=== PATIENT | male | born 1975 | race Caucasian/White ===

== ENCOUNTER 2017-06-19 17:01 | Emergency (ER) | payer BC ==
[~2017-06-19] VITALS: Ht 167.6 cm; Wt 55.8 kg
[~2017-06-19 17:01] MED LIST: ALPRAZOLAM1 M2 PO; ATIVAN0.5 MG PO; ATIVAN1 MG PO; CATAFLAM50 MG PO; VALIUM5 MG PO; VISTARIL25 MG PO; XANAX0.25 MG PO
[2017-06-19] MEDS ORDERED: BENADRYL25 M2 PO (17:24)
[2017-06-19] MEDS ORDERED: PREDNISONE10 MG PO (17:26)
== END 2017-06-19 18:26 | disposition home or self-care (01) ==
LOC: ED 17:01
DX: L23.7 Allergic contact dermatitis due to plants, except food (principal)

== ENCOUNTER 2019-06-05 10:44 | Emergency (ER) | payer BC ==
[~2019-06-05] VITALS: Ht 167.6 cm; Wt 99.8 kg
[~2019-06-05 10:44] MED LIST changes: +BENADRYL25 M2 PO; +PREDNISONE10 MG PO
[2019-06-05] MEDS ORDERED: IBUPROFEN600 MG PO (11:32)
[2019-06-05] MEDS ORDERED: SILVADENE,SSD C50 GM T (11:32)
== END 2019-06-05 12:02 | disposition home or self-care (01) ==
LOC: ED 10:44
DX: T23.222A Burn of second degree of single left finger (nail) except thumb, initial encounter (principal); T31.0 Burns involving less than 10% of body surface; Z79.899 Other long term (current) drug therapy; X17.XXXA Contact with hot engines, machinery and tools, initial encounter; Y93.89 Activity, other specified; Y92.89 Other specified places as the place of occurrence of the external cause; Y99.8 Other external cause status

== ENCOUNTER → 2019-09-14 | Outpatient (CLI) | payer BC ==
[~2019-09-14] MED LIST changes: +COREG6.25 MG PO; +IBUPROFEN600 MG PO; +KLONOPIN0.5 MG PO; +LIPITOR10 MG PO; +PAXIL20 M1 PO; +SILVADENE,SSD C50 GM T
--- NOTE | ~2019-09-14 | ST ---
[place], [place] EXERCISE STRESS TEST REPORT NAME: KELLY MURRAY [facility] #: [id number] UNIT #: [id number] ROOM: DOCTOR: DANIE BERG MD BIRTHDATE: [birth year] DOS: 09/14/2019 EXERCISE STRESS ECHOCARDIOGRAPHY The patient walked on J Luis modified protocol, 2-minute protocol achieving 157 peak heart rate, and walked for about 6 minutes 30 seconds, achieved about 10 METs, 90% of predicted heart rate. Peak blood pressure is 152/84. Baseline EKG, sinus with nonspecific ST-T changes. With exercise, no EKG changes suggestion of myocardial ischemia. Baseline echo obtained showed an ejection fraction about 55-60%. No wall motion abnormalities. With exercise, the patient had no chest discomfort, no dysrhythmia. Blood pressure and heart rate response was normal. Echo improved from 55% almost obliteration of the cavity. No hypokinesis dyskinesis, etc. There is thickening of all the segments of the left ventricle. FINAL IMPRESSION: Normal exercise stress echocardiography without any evidence of ischemia. DANIE BERG MD CM:STRESS:EXERCISE STRESS TEST REPORT [id number] DANIE BERG MD
--- NOTE | 2019-09-14 07:25 | NUR ---
INFORMED CONSENT SIGNED FOR EXERCISE STRESS ORDER WITH DR. BERG. RESTING EKG MSR WITH RARE PVC, HR 62, BP 90/66. COMPLETED 6:30 OF A 2 MINUTE GWYN PROTOCOL COMPLETING :30 STAGE IV, 4.2MPH/16% GRADE. PEAK HEART RATE OF 157 ACHIEVED WHICH IS 89% PREDICTED MAXIMUM AND A PEAK BP OF 152/84. RARE PVC NOTED WITH NO ST CHANGES. HAS AN AVERAGE EXERCISE TOLERANCE. SEE ECHO REPORT FOR FULL DETAILS OF ECHO. LAST RECOVERY HR 73, BP 120/50. THIS IS A NEGATIVE EXERCISE STRESS ECHO. LEFT CARDIOLOGY IN STABLE CONDITION.
== END | disposition home or self-care (01) ==
LOC: CARD 01:08
DX: I49.8 Other specified cardiac arrhythmias (principal)

== ENCOUNTER 2020-04-07 09:59 | Emergency (ER) | payer BC ==
[2020-04-07 10:27] LABS: BASO % 0.4 % (0.0-1.0); EOS # 0.1 10*3/uL (0.0-0.4); EOS % 1.9 % (1.0-4.0); LYMPH # 1.4 10*3/uL (1.3-4.4); LYMPH % 25.4 % (27.0-41.0); MEAN CELL VOLUME 93.1 fl (80.0-94.0); MEAN CORPUSCULAR HGB 31.4 pg (27.0-31.0); MEAN CORPUSCULAR HGB CONC 33.7 g/dl (33.0-37.0); MEAN PLATELET VOLUME 10.7 fl (9.6-12.3); MONO # 0.5 10*3/uL (0.1-1.0); MONO % 8.8 % (3.0-9.0); NEUT # 3.6 10*3/uL (2.3-7.9); NEUT % 63.3 % (47.0-73.0); PLATELET COUNT AUTOMATED 200 10*3/uL (130-400); RED BLOOD COUNT 4.62 10*6/uL (4.50-5.90); RED CELL DISTRI WIDTH 12.7 % (0-14.5); WHITE BLOOD COUNT 5.7 10*3/uL (4.8-10.8)
[2020-04-07 10:44] LABS: ALBUMIN 3.4 gm/dl (3.1-4.5); ALKALINE PHOSPHATASE 103 U/L (45-117); BUN 18 mg/dl (7-24); CHLORIDE 110 mmol/L (98-107); CREATININE 0.94 mg/dL (0.70-1.30); POTASSIUM 3.9 mmol/L (3.5-5.1); SGOT/AST 15 IU/L (3-35); SGPT/ALT 26 U/L (12-78); SODIUM 139 mmol/L (136-145); TOTAL PROTEIN 7.5 gm/dL (6.4-8.2)
[2020-04-07 10:46] LABS: TROPONIN I < 0.015 ng/ml (<0.045)
== END 2020-04-07 11:59 | disposition home or self-care (01) ==
LOC: ED 09:59
PROVIDERS: Internal Medicine
DX: H53.8 Other visual disturbances (principal); R42 Dizziness and giddiness; I10 Essential (primary) hypertension; Z79.899 Other long term (current) drug therapy

== ENCOUNTER → 2020-11-27 | Outpatient (CLI) | payer BC ==
[2020-11-27 16:21] LABS: BASO % 0.4 % (0.0-1.0); EOS # 0.1 10*3/uL (0.0-0.4); EOS % 1.7 % (1.0-4.0); LYMPH # 1.4 10*3/uL (1.3-4.4); LYMPH % 26.2 % (27.0-41.0); MEAN CELL VOLUME 90.7 fl (80.0-94.0); MEAN CORPUSCULAR HGB 30.5 pg (27.0-31.0); MEAN CORPUSCULAR HGB CONC 33.7 g/dl (33.0-37.0); MEAN PLATELET VOLUME 10.9 fl (9.6-12.3); MONO # 0.5 10*3/uL (0.1-1.0); NEUT # 3.3 10*3/uL (2.3-7.9); NEUT % 62.5 % (47.0-73.0); PLATELET COUNT AUTOMATED 217 10*3/uL (130-400); RED BLOOD COUNT 4.52 10*6/uL (4.50-5.90); RETICULOCYTE % 1.71 % (0.50-2.50); WHITE BLOOD COUNT 5.2 10*3/uL (4.8-10.8)
[2020-11-27 16:36] LABS: BILIRUBIN Negative (Negative); BLOOD Negative (Negative); CLARITY Clear (Clear); COLOR Yellow (Yellow); GLUCOSE Negative (Negative); KETONE Trace (Negative); LEUKO ESTERASE Negative (Negative); NITRITE Negative (Negative); SPECIFIC GRAVITY 1.025 (1.001-1.030); UROBILINOGEN 0.2 E.U./dl (0.0-1.0)
[2020-11-27 16:38] LABS: ALBUMIN 3.4 gm/dl (3.1-4.5); ALKALINE PHOSPHATASE 109 U/L (45-117); BUN 19 mg/dl (7-24); CHLORIDE 108 mmol/L (98-107); CHOLESTEROL 146 mg/dL (<200); CREATININE 0.94 mg/dL (0.70-1.30); GAMMA GLUTAMYL TRANSPEPTIDASE 19 U/L (15-85); HDL CHOLESTEROL 48 mg/dl (40-60); IRON 76 ug/dL (65-175); LDL CHOLESTEROL 84 mg/dL (9-159); POTASSIUM 3.7 mmol/L (3.5-5.1); SGOT/AST 19 IU/L (3-35); SGPT/ALT 28 U/L (12-78); SODIUM 139 mmol/L (136-145); TOTAL IRON BINDING CAPACITY 277 ug/dl (250-450); TOTAL PROTEIN 7.2 gm/dL (6.4-8.2); TRIGLYCERIDES 70 mg/dl (<150); VLDL CHOLESTEROL 14 mg/dL (6-40)
[2020-11-27 16:40] LABS: CPK 203 U/L (39-308)
[2020-11-27 16:50] LABS: BACTERIA TRACE; EPITHELIAL CELLS 0-2; MUCOUS 2+; RBC 0-2 rbc/hpf (0-2); WBC 0-2 wbc/hpf (0-5)
== END | disposition home or self-care (01) ==
LOC: LAB 15:49
PROVIDERS: ATTEND Family Medicine
DX: E78.5 Hyperlipidemia, unspecified (principal); R53.83 Other fatigue; R79.89 Other specified abnormal findings of blood chemistry

== ENCOUNTER 2021-03-09 04:00 | Emergency (ER) | payer BC ==
[~2021-03-09] VITALS: Ht 167.6 cm
[2021-03-09 04:26] LABS: BASO % 0.3 % (0.0-1.0); EOS # 0.3 10*3/uL (0.0-0.4); EOS % 2.6 % (1.0-4.0); HEMATOCRIT 42.2 % (42.0-52.0); LYMPH # 1.6 10*3/uL (1.3-4.4); LYMPH % 16.3 % (27.0-41.0); MEAN CELL VOLUME 90.9 fl (80.0-94.0); MEAN CORPUSCULAR HGB 30.6 pg (27.0-31.0); MEAN CORPUSCULAR HGB CONC 33.6 g/dl (33.0-37.0); MEAN PLATELET VOLUME 10.9 fl (9.6-12.3); MONO # 0.8 10*3/uL (0.1-1.0); MONO % 8.1 % (3.0-9.0); NEUT # 7.3 10*3/uL (2.3-7.9); NEUT % 72.4 % (47.0-73.0); PLATELET COUNT AUTOMATED 233 10*3/uL (130-400); RED BLOOD COUNT 4.64 10*6/uL (4.50-5.90); RED CELL DISTRI WIDTH 12.9 % (0-14.5); WHITE BLOOD COUNT 10.1 10*3/uL (4.8-10.8)
[2021-03-09 04:43] LABS: ALBUMIN 3.5 gm/dl (3.1-4.5); ALKALINE PHOSPHATASE 110 U/L (45-117); BUN 18 mg/dl (7-24); CHLORIDE 108 mmol/L (98-107); CREATININE 1.01 mg/dL (0.70-1.30); POTASSIUM 3.6 mmol/L (3.5-5.1); SGOT/AST 19 IU/L (3-35); SGPT/ALT 30 U/L (12-78); SODIUM 140 mmol/L (136-145); TOTAL PROTEIN 7.6 gm/dL (6.4-8.2)
[2021-03-09 04:45] LABS: TROPONIN I < 0.015 ng/ml (<0.045)
[2021-03-09 04:51] LABS: ACT PARTIAL THROMBO TIME 25.6 SECONDS (20.0-32.1)
[2021-03-09] MEDS ORDERED: COLCHICINE0.6 M2 PO (15:36)
[2021-03-09] MEDS ORDERED: Motrin,Rufen800 MG PO (15:36)
== END 2021-03-09 15:43 | disposition home or self-care (01) ==
LOC: ED 04:00
PROVIDERS: Emergency Medicine
DX: I31.9 Disease of pericardium, unspecified (principal); I10 Essential (primary) hypertension; F41.9 Anxiety disorder, unspecified; Z79.899 Other long term (current) drug therapy

== ENCOUNTER 2021-08-01 03:40 | Emergency (ER) | payer BC ==
[~2021-08-01] VITALS: Ht 170.1 cm; Wt 104.3 kg
[~2021-08-01 03:40] MED LIST changes: +COLCHICINE0.6 M2 PO; +Motrin,Rufen800 MG PO
[2021-08-01 06:20] LABS: BASO % 0.5 % (0.0-1.0); EOS # 0.1 10*3/uL (0.0-0.4); EOS % 2.2 % (1.0-4.0); HEMATOCRIT 42.3 % (42.0-52.0); LYMPH # 1.3 10*3/uL (1.3-4.4); MEAN CELL VOLUME 92.4 fl (80.0-94.0); MEAN CORPUSCULAR HGB 31.2 pg (27.0-31.0); MEAN CORPUSCULAR HGB CONC 33.8 g/dl (33.0-37.0); MEAN PLATELET VOLUME 10.8 fl (9.6-12.3); MONO # 0.6 10*3/uL (0.1-1.0); MONO % 8.7 % (3.0-9.0); NEUT # 4.4 10*3/uL (2.3-7.9); NEUT % 68.4 % (47.0-73.0); PLATELET COUNT AUTOMATED 225 10*3/uL (130-400); RED BLOOD COUNT 4.58 10*6/uL (4.50-5.90); RED CELL DISTRI WIDTH 13.2 % (0-14.5); WHITE BLOOD COUNT 6.4 10*3/uL (4.8-10.8)
[2021-08-01 06:36] LABS: ALBUMIN 3.6 gm/dl (3.1-4.5); ALKALINE PHOSPHATASE 115 U/L (45-117); BUN 21 mg/dl (7-24); CHLORIDE 108 mmol/L (98-107); CREATININE 0.88 mg/dL (0.70-1.30); POTASSIUM 3.9 mmol/L (3.5-5.1); SGOT/AST 22 IU/L (3-35); SGPT/ALT 37 U/L (12-78); SODIUM 141 mmol/L (136-145); TOTAL PROTEIN 7.6 gm/dL (6.4-8.2)
[2021-08-01 06:45] LABS: TROPONIN I < 0.015 ng/ml (<0.045)
== END 2021-08-01 09:28 | disposition home or self-care (01) ==
LOC: ED 03:40
PROVIDERS: Emergency Medicine
DX: R42 Dizziness and giddiness (principal); Z79.899 Other long term (current) drug therapy

== ENCOUNTER → 2021-11-01 | Outpatient (CLI) | payer BC | END | disposition home or self-care (01) | LOC: COVID19 15:04 | PROVIDERS: ATTEND Internal Medicine | DX: U07.1 COVID-19 (principal) ==

== ENCOUNTER → 2022-12-23 | Outpatient (CLI) | payer BC ==
[2022-12-23 14:53] LABS: BASO % 0.4 % (0.0-1.0); EOS # 0.1 10*3/uL (0.0-0.4); EOS % 2.3 % (1.0-4.0); HEMATOCRIT 42.1 % (42.0-52.0); LYMPH # 1.6 10*3/uL (1.3-4.4); LYMPH % 31.4 % (27.0-41.0); MEAN CELL VOLUME 89.4 fl (80.0-94.0); MEAN CORPUSCULAR HGB 31.4 pg (27.0-31.0); MEAN CORPUSCULAR HGB CONC 35.2 g/dl (33.0-37.0); MEAN PLATELET VOLUME 10.7 fl (9.6-12.3); MONO # 0.6 10*3/uL (0.1-1.0); MONO % 11.6 % (3.0-9.0); NEUT # 2.8 10*3/uL (2.3-7.9); NEUT % 53.9 % (47.0-73.0); PLATELET COUNT AUTOMATED 236 10*3/uL (130-400); RED BLOOD COUNT 4.71 10*6/uL (4.50-5.90); RED CELL DISTRI WIDTH 12.7 % (0-14.5); WHITE BLOOD COUNT 5.2 10*3/uL (4.8-10.8)
[2022-12-23 15:19] LABS: ALKALINE PHOSPHATASE 99 U/L (46-116); BUN 16 mg/dl (9-23); CHLORIDE 104 mmol/L (98-107); CHOLESTEROL 172 mg/dL (<200); CPK 171 U/L (34-171); GAMMA GLUTAMYL TRANSPEPTIDASE 20 U/L (0-73); LDL CHOLESTEROL 110 mg/dL (9-159); SGPT/ALT 20 U/L (10-49); THYROID STIM HORMONE (HS) 4.079 uIU/ml (0.550-4.780); TOTAL PROTEIN 7.3 gm/dL (6.0-8.0); TRIGLYCERIDES 106 mg/dl (<150)
[2022-12-23 15:43] LABS: BILIRUBIN Negative (Negative); BLOOD Negative (Negative); CLARITY Clear (Clear); COLOR Yellow (Yellow); GLUCOSE Negative (Negative); KETONE Negative (Negative); LEUKO ESTERASE Negative (Negative); NITRITE Negative (Negative); PH 5.5 (4.5-8.0); SPECIFIC GRAVITY 1.025 (1.001-1.030); UROBILINOGEN 0.2 E.U./dl (0.0-1.0)
[2022-12-23 15:59] LABS: MUCOUS 2+; WBC 0-2 wbc/hpf (0-5)
== END | disposition home or self-care (01) ==
LOC: LAB 14:28
PROVIDERS: ATTEND Family Medicine
DX: E78.5 Hyperlipidemia, unspecified (principal); E55.9 Vitamin D deficiency, unspecified; R79.89 Other specified abnormal findings of blood chemistry; R53.83 Other fatigue; R74.8 Abnormal levels of other serum enzymes

== ENCOUNTER 2023-03-21 02:51 | Emergency (ER) | payer BC ==
[~2023-03-21] VITALS: Ht 170.1 cm; Wt 104.3 kg
[2023-03-21 03:45] LABS: BASO % 0.5 % (0.0-1.0); EOS # 0.1 10*3/uL (0.0-0.4); EOS % 2.3 % (1.0-4.0); HEMATOCRIT 41.5 % (42.0-52.0); LYMPH # 1.9 10*3/uL (1.3-4.4); MEAN CELL VOLUME 90.4 fl (80.0-94.0); MEAN CORPUSCULAR HGB 31.2 pg (27.0-31.0); MEAN CORPUSCULAR HGB CONC 34.5 g/dl (33.0-37.0); MEAN PLATELET VOLUME 10.7 fl (9.6-12.3); MONO # 0.5 10*3/uL (0.1-1.0); MONO % 8.7 % (3.0-9.0); NEUT # 3.1 10*3/uL (2.3-7.9); NEUT % 55.3 % (47.0-73.0); PLATELET COUNT AUTOMATED 212 10*3/uL (130-400); RED BLOOD COUNT 4.59 10*6/uL (4.50-5.90); RED CELL DISTRI WIDTH 13.2 % (0-14.5); WHITE BLOOD COUNT 5.6 10*3/uL (4.8-10.8)
[2023-03-21 04:09] LABS: ALKALINE PHOSPHATASE 99 U/L (46-116); BUN 17 mg/dl (9-23); CHLORIDE 108 mmol/L (98-107); SGPT/ALT 18 U/L (10-49); TOTAL PROTEIN 6.9 gm/dL (6.0-8.0)
== END 2023-03-21 06:40 | disposition home or self-care (01) ==
LOC: ED 02:51
PROVIDERS: Emergency Medicine
DX: F41.9 Anxiety disorder, unspecified (principal); I10 Essential (primary) hypertension; E78.00 Pure hypercholesterolemia, unspecified

== ENCOUNTER → 2024-11-17 | Outpatient (CLI) | payer BC ==
[2024-11-17 09:37] LABS: BASO % 0.2 % (0.0-1.0); EOS # 0.1 10*3/uL (0.0-0.4); EOS % 2.7 % (1.0-4.0); HEMATOCRIT 43.2 % (42.0-52.0); MEAN CELL VOLUME 91.5 fl (80.0-94.0); MEAN CORPUSCULAR HGB 31.1 pg (27.0-31.0); MEAN PLATELET VOLUME 10.9 fl (9.6-12.3); MONO # 0.7 10*3/uL (0.1-1.0); MONO % 13.6 % (3.0-9.0); NEUT # 2.8 10*3/uL (2.3-7.9); NEUT % 58.6 % (47.0-73.0); PLATELET COUNT AUTOMATED 212 10*3/uL (130-400); RED BLOOD COUNT 4.72 10*6/uL (4.50-5.90); RED CELL DISTRI WIDTH 12.9 % (0-14.5); RETICULOCYTE % 1.55 % (0.50-2.50); WHITE BLOOD COUNT 4.8 10*3/uL (4.8-10.8)
[2024-11-17 10:00] LABS: BILIRUBIN Negative (Negative); BLOOD Negative (Negative); CLARITY Clear (Clear); COLOR Dark Yellow (Yellow); GLUCOSE Negative (Negative); KETONE Trace (Negative); LEUKO ESTERASE Negative (Negative); NITRITE Negative (Negative); PH 5.5 (4.5-8.0); SPECIFIC GRAVITY >= 1.030 (1.001-1.030)
[2024-11-17 10:11] LABS: ALKALINE PHOSPHATASE 99 U/L (46-116); BUN 22 mg/dl (9-23); CHLORIDE 106 mmol/L (98-107); CHOLESTEROL 130 mg/dL (<200); GAMMA GLUTAMYL TRANSPEPTIDASE 21 U/L (0-73); LDL CHOLESTEROL 77 mg/dL (9-159); POTASSIUM 3.7 mmol/L (3.4-5.1); SGPT/ALT 17 U/L (5-49); TRIGLYCERIDES 71 mg/dl (<150)
[2024-11-17 10:37] LABS: MUCOUS 1+; RBC 0-2 rbc/hpf (0-2)
[2024-11-17 10:44] LABS: VITAMIN D, 25-HYDROXY 37.7 ng/mL (30-100)
== END | disposition home or self-care (01) ==
LOC: LAB 09:05
PROVIDERS: ATTEND Family Medicine
DX: R79.89 Other specified abnormal findings of blood chemistry (principal); R53.83 Other fatigue; E78.5 Hyperlipidemia, unspecified; E55.9 Vitamin D deficiency, unspecified

== ENCOUNTER 2025-02-12 14:12 | Emergency (ER) | payer OTHER ==
[~2025-02-12] VITALS: Ht 172.7 cm; Wt 100.7 kg
== END 2025-02-12 15:04 | disposition home or self-care (01) ==
LOC: ED 14:12
DX: Z77.098 Contact with and (suspected) exposure to other hazardous, chiefly nonmedicinal, chemicals (principal); F41.9 Anxiety disorder, unspecified; I10 Essential (primary) hypertension; Z79.899 Other long term (current) drug therapy

== ENCOUNTER 2025-04-02 05:46 | Emergency (ER) | payer BC ==
[~2025-04-02] VITALS: Ht 172.7 cm; Wt 104.3 kg
[2025-04-02] MEDS ORDERED: diazePAM 5 MG TAB PO ONE (06:05)
[2025-04-02 06:24] LABS: BASO % 0.5 % (0.0-1.0); EOS # 0.1 10*3/uL (0.0-0.4); EOS % 2.1 % (1.0-4.0); HEMATOCRIT 40.4 % (42.0-52.0); MEAN CELL VOLUME 89.6 fl (80.0-94.0); MEAN CORPUSCULAR HGB 31.3 pg (27.0-31.0); MEAN CORPUSCULAR HGB CONC 34.9 g/dl (33.0-37.0); MEAN PLATELET VOLUME 10.5 fl (9.6-12.3); MONO # 0.5 10*3/uL (0.1-1.0); MONO % 9.2 % (3.0-9.0); NEUT # 3.3 10*3/uL (2.3-7.9); NEUT % 58.4 % (47.0-73.0); PLATELET COUNT AUTOMATED 186 10*3/uL (130-400); RED BLOOD COUNT 4.51 10*6/uL (4.50-5.90); RED CELL DISTRI WIDTH 12.7 % (0-14.5); WHITE BLOOD COUNT 5.7 10*3/uL (4.8-10.8)
[2025-04-02 06:45] LABS: BUN 17 mg/dl (9-23); CHLORIDE 104 mmol/L (98-107); CPK 205 U/L (34-171); POTASSIUM 3.9 mmol/L (3.4-5.1)
[2025-04-02] MEDS ORDERED: SODIUM CHLORIDE 0.9% 500 ML IV ONE (07:00)
== END 2025-04-02 10:37 | disposition home or self-care (01) ==
LOC: ED 05:46
PROVIDERS: Emergency Medicine
DX: F41.9 Anxiety disorder, unspecified (principal); R20.2 Paresthesia of skin; R42 Dizziness and giddiness; R68.2 Dry mouth, unspecified; R20.0 Anesthesia of skin; Z79.899 Other long term (current) drug therapy